=== PATIENT | male | born 2000 | race Caucasian/White ===

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

== ENCOUNTER 2021-12-31 22:26 | Emergency (ER) | payer MEDICAID ==
[~2021-12-31] VITALS: Ht 177.8 cm; Wt 73.8 kg
[2021-12-31] MEDS: IPRATROPIUM BROM 0.5 MG/2.5ML INH SOL NEB ONE (23:15)
[2021-12-31] MEDS ORDERED: DexAMETHasone SOD PHOS 10MG/1ML VIAL INJ IM ONE (23:15)
[2021-12-31] MEDS: ALBUTEROL SULF 2.5 MG/0.5ML(0.5%) NEB SOLN NEB ONE (23:15)
[2022-01-01] MEDS: ALBUTEROL SULF 2.5 MG/0.5ML(0.5%) NEB SOLN NEB ONE (00:25)
[2022-01-01] MEDS: IPRATROPIUM BROM 0.5 MG/2.5ML INH SOL NEB ONE (00:25)
[2022-01-01] MEDS ORDERED: AZIT250T9 PO (01:32)
[2022-01-01] MEDS ORDERED: PRED20TA2 PO (01:32)
[2022-01-01] MEDS ORDERED: ALBUAER3 IN (01:32)
[2022-01-01 01:42] VITALS: BP 123/74
[2022-01-01] MEDS ORDERED: IPRATROPIUM BROM 0.5 MG/2.5ML INH SOL NEB ONE (01:45)
[2022-01-01] MEDS ORDERED: ALBUTEROL SULF 2.5 MG/0.5ML(0.5%) NEB SOLN NEB ONE (01:45)
== END 2022-01-01 02:04 | disposition home or self-care (01) ==
LOC: ER 22:26
DX: J45.901 Unspecified asthma with (acute) exacerbation (principal)
CPT/HCPCS: 71045; 94640; 96372; 99285; J1100; J7644

== ENCOUNTER 2023-04-22 12:27 | Emergency (ER) | payer MEDICAID ==
[~2023-04-22] VITALS: Ht 180.3 cm; Wt 80.3 kg
[~2023-04-22 12:27] MED LIST: ALBUAER3 IN; AZIT-43 PO; PRED20TA2 PO
[2023-04-22 13:14] VITALS: BP 130/81; PULSE 108; RESP 18; TEMP 97.9; O2SAT 97
[2023-04-22] MEDS ORDERED: PRED20TA2 PO (13:33)
[2023-04-22] MEDS ORDERED: BENZ200C64 PO (13:33)
[2023-04-22] MEDS ORDERED: ALB5IS NEB (13:33)
== END 2023-04-22 13:39 | disposition home or self-care (01) ==
LOC: ER 12:27
DX: J03.90 Acute tonsillitis, unspecified (principal); J20.9 Acute bronchitis, unspecified; J45.909 Unspecified asthma, uncomplicated
CPT/HCPCS: 71045

== ENCOUNTER 2023-04-24 00:04 | Emergency (ER) | payer MEDICAID ==
[~2023-04-24] VITALS: Ht 180.3 cm; Wt 77.2 kg
[~2023-04-24 00:04] MED LIST changes: +ALB5IS NEB; +BENZ200C64 PO
[2023-04-24 00:08] VITALS: BP 132/89; PULSE 100; RESP 18; O2SAT 95
== END 2023-04-24 07:38 | disposition left against medical advice (07) ==
LOC: ER 00:04
DX: R05.9 Cough, unspecified (principal); R51.9 Headache, unspecified; Z53.21 Procedure and treatment not carried out due to patient leaving prior to being seen by health care provider